=== PATIENT | male | born 1975 | race Caucasian/White ===

== ENCOUNTER 2016-12-15 09:06 | Emergency (ER) | payer MEDICAID ==
[~2016-12-15] VITALS: Ht 157.5 cm; Wt 77.0 kg
[~2016-12-15 09:06] MED LIST: CLIN300C2 PO; IBUP-40; [UNRECOGNIZED DRUG - CODE] PO
[2016-12-15 09:08] VITALS: Ht 157.5 cm; Wt 77.0 kg
[2016-12-15] MEDS ORDERED: CEPH-443 PO (09:23)
[2016-12-15] MEDS ORDERED: SULF1TAB31 PO (09:24)
[2016-12-15] MEDS ORDERED: ACET500C5 PO (09:24)
[2016-12-15] MEDS ORDERED: CEPHALEXIN 500 MG CAP PO ONE (09:30)
[2016-12-15] MEDS ORDERED: TRIMETHOPRIM/SULFAMETHOX (DS) TAB PO ONE (09:30)
--- NOTE | 2016-12-15 09:49 | ERD ---
ER Documentation Chief Complaint Date/Time DATE: 12/15/16 TIME: 09:45 Chief Complaint Complains of a bite to left leg HPI Patient is a 41-year-old male here with daughter a medical front desk coordinator who presents to the ED with redness on his left leg. Patient is a cook at a restaurant and states that he possibly got a bite on the bottom of his foot. He states that since yesterday he has had increase in redness that radiates up his leg. He denies fevers however he does complain of chills. Denies vomiting or headache or dizziness. Denies chest pain or cough or shortness of breath. He has no other complaints. ROS All systems reviewed and are negative except as per history of present illness. Medications Home Meds Active Scripts Acetaminophen* (Tylophen*) 500 Mg Capsule, 1 CAP PO Q6H Y for PAIN AND OR ELEVATED TEMP, #20 CAP Prov:NATHAN AGUILA PA-C 12/15/16 Sulfamethoxazole/Trimethoprim* (Bactrim Ds* Tablet) 1 Each Tablet, 1 TAB PO BID for 7 Days, #14 TAB Prov:NATHAN AGUILA PA-C 12/15/16 Cephalexin* (Keflex*) 500 Mg Capsule, 500 MG PO QID for 7 Days, CAP Prov:NATHAN AGUILA PA-C 12/15/16 Reported Medications Hydrocodone Bit/Acetaminophen (Lortab Elixir) 480 Ml Solution, 480 ML PO 15 ML Q 6HRS PRN 01/24/11 Clindamycin Hcl* (Cleocin*) 300 Mg Cap, 300 MG PO QID 01/24/11 Ibuprofen (Advil) 200 Mg Tablet 10/24/10 Allergies Allergies: Coded Allergies: No Known Allergies (Verified Allergy, Mild, 12/15/16) PMhx/Soc History of Surgery: No (NO MEDICAL OR SURGICAL HISTORY) Anesthesia Reaction: No Hx Neurological Disorder: No Hx Respiratory Disorders: No Hx Cardiac Disorders: No Hx Psychiatric Problems: No Hx Miscellaneous Medical Probl: No Hx Alcohol Use: Yes (Social) Hx Substance Use: No Hx Tobacco Use: Yes (1-2 cigarettes per day) Smoking Status: Never smoker FmHx Family History: No coronary disease, No diabetes, No other Physical Exam Vitals Vital Signs Date Time Temp Pulse Resp B/P Pulse Ox O2 Delivery O2 Flow Rate FiO2 12/15/16 09:08 98.0 107 20 160/106 95 Physical Exam GENERAL: Well-developed, well-nourished male. Appears in no acute distress. HEAD: Normocephalic, atraumatic. LUNG: Clear to auscultation bilaterally. No rhonchi, wheezing, rales or coarse breath sounds. HEART: Regular rate and rhythm. No murmurs, rubs or gallops. Extremities: Equal pulses bilaterally. No peripheral clubbing, cyanosis or edema. No unilateral leg swelling. NEUROLOGIC: Alert and oriented. Moving all four extremities. 5/5 strength in all extremities. Normal speech. Steady gait. SKIN:and dry. No rashes or lesions. Capillary refill < 2 seconds. Left leg has erythema and warmth with streaking up to the inner left thigh. No step-offs or deformities. Results 24 hrs Current Medications Medications (Trade) Dose Ordered Sig/Alma Route PRN Reason Start Time Stop Time Status Last Admin Dose Admin Trimethoprim/ Sulfamethoxazole (Bactrim (Ds)) 1 tab ONCE ONCE PO 12/15/16 09:30 12/15/16 09:31 DC 12/15/16 09:25 Cephalexin (Keflex) 500 mg ONCE ONCE PO 12/15/16 09:30 12/15/16 09:31 DC 12/15/16 09:25 Procedures/MDM ER COURSE: I kept the patient and/or family informed of laboratory and diagnostic imaging results throughout the emergency room course. MEDICATIONS Bactrim and Keflex given here in the ED. Tolerated well with no adverse reaction MEDICAL DECISION MAKING: This is a 41-year-old male with no past medical history who presents with redness on his left foot and leg. Vital signs were reviewed. Patient is afebrile. Patient is not hypoxic. I consulted with my supervising physician Dr. Kelley who agrees with my medical decision making. Patient does not have any past medical conditions such as diabetes and at this point patient can be treated outpatientLY with Bactrim and Keflex. Patient does not need to be admitted for IV antibiotics. Patient is not toxic or ill-appearing is alert and oriented. Low suspicion for necrotizing fasciitis, SJS, toxic epidermal necrolysis, Kawasaki, erythema multiforme, gangrene, scarlet fever, meningococcemia, sepsis, anaphylaxis, sepsis, deep space infection, or foreign body, bacteremia. Plan was discussed with family who agrees and understands the plan. DISCHARGE: At this time, patient is stable for discharge and outpatient management with no new complaints during the ER course. Patient was sent home with Bactrim and Keflex and to return in 2 days for wound check or earlier if symptoms worsen such as fever or increasing redness. Patient will be discharged home with instructions to recheck for new or worsening symptoms such as fever, nausea, weakness, LOC and to follow up with primary care in the next 1-2 days. Patient was advised to return to the ER for any new or worsening symptoms. Plan was discussed and patient and/or family understands and agrees. Home instructions were given. Departure Diagnosis: Primary Impression: Cellulitis Site of cellulitis: extremity Site of cellulitis of extremity: lower extremity Laterality: left Qualified Code: L03.116 - Cellulitis of left lower extremity Condition: Stable Patient Instructions: Cellulitis [facility] Usted se adams hecho un examen mdico de control que le indica que no est en patti condicin que requiera tratamiento urgente en el Departamento de Emergencia. Un estudio ms profundo y el tratamiento de arnold condicin pueden esperar sin ningn riesgo hasta que usted sea atendida/o en el consultorio de arnold mdico o patti cl vickie. Es responsabilidad suya arreglar patti jannet para el seguimiento del rayne. MANEJO DE CONDICIONES NO URGENTES EN EL FUTURO 1) Si usted tiene un mdico de atencin primaria: Usted debera llamar a arnold mdico de atencin primaria antes de venir al departamento de emergencia. Despus de las horas de consultorio, arnold doctor o arnold asociado/a est disponible por telfono. El mdico o enfermero de umm en el servicio telefnico puede asesorarle por nataliia medio para atender el problema, o rayne contrario se puede programar patti jannet. 2) Si usted no tiene un mdico de atencin primaria: Llame al mdico o clnica de referencia que aparece abajo eleni las horas de consultorio para hacer patti jannet para que le vean. CLINICAS: [place] [id number] [phone] [facility] [phone] [place] [address] [phone] [place] [address] [phone] [place] [address] [phone] [facility] [phone] [address] Additional Instructions: Llame al doctor MAANA y sofy patti JANNET PARA DENTRO DE 1-2 WILLAMS.Dgale a la secretaria que nosotros le instruimos hacer esta jannet.Avise o llame si arnold condicin se empeora antes de la jannet. Regresa aqui si peor o no mejor. NATHAN AGUILA PA-C Dec 15, 2016 09:49
== END 2016-12-15 10:00 | disposition home or self-care (01) ==
LOC: FTE 09:06
DX: L03.116 Cellulitis of left lower limb (principal); F17.210 Nicotine dependence, cigarettes, uncomplicated
CPT/HCPCS: Z7610 ×2; 99284

== ENCOUNTER 2017-09-26 15:55 | Emergency (ER) | END 2017-09-26 18:20 | disposition home or self-care (01) ==

== ENCOUNTER 2017-09-28 11:36 | Emergency (ER) | END 2017-09-28 11:59 | disposition home or self-care (01) ==

== ENCOUNTER 2018-01-10 08:46 | Emergency (ER) | END 2018-01-10 09:16 | disposition home or self-care (01) ==